=== PATIENT | female | born 1970 | race Caucasian/White ===

== ENCOUNTER → 2018-03-17 | Outpatient (CLI) | payer SELFPAY ==
[~2018-03-17] MED LIST: AMPDEX10CR PO; ASPI81CH PO; B12 SHOT; BENTYL20 MG PO; BENZ100A PO; CYCL10 PO; ESTR2 PO; FAMO20 PO; HYDACE5 PO; HYDR1TAB94 PO; IBUP600 PO; IBUP800 PO; LEVFLO500 PO; LEVSOD50 PO; LISI5 PO; LISINOPRIL 10MG PO; MELO7.5 PO; METF500 PO; METF500C PO; NAPR500 PO; OXYB5 PO; PENVK500 PO; PROM25 PO; Pepcid40 MG PO; QUET200 PO; ROPI1 PO; SUCR1 PO; SUMA25 PO; TRAM50 PO; TRAZ50 PO; Ultram50 MG PO; VIIBRYD; VIIBRYD40 MG PO; Verotin-Gr Cap1 EACH PO; [UNRECOGNIZED DRUG - REMARK]
[2018-03-17 19:59] LABS: Creatinine, Urine Random 52.8 mg/dL (27.00-270.00); Microalb/Creat Ratio UR, Rand 13.693 mg/g (0.000-30.000); Microalbumin, Random Urine 7.23 mg/L (0.000-20.000)
== END | disposition home or self-care (01) ==
LOC: LAB EV 15:30 → LAB SHORT 15:30
PROVIDERS: Physician Assistant Medical
DX: E11.9 Type 2 diabetes mellitus without complications (principal)
CPT/HCPCS: 82043; 82570

== ENCOUNTER → 2022-05-31 | Outpatient (CLI) | payer OTHER ==
[2022-05-31 10:48] LABS: Microalb/Creat Ratio UR, Rand 9.869 mg/g (0.000-30.000); Microalbumin, Random Urine 15.1 mg/L (0.000-20.000)
== END | disposition home or self-care (01) ==
LOC: LAB 08:31 → LAB SHORT 08:31
PROVIDERS: Family Medicine
DX: E11.42 Type 2 diabetes mellitus with diabetic polyneuropathy (principal)
CPT/HCPCS: 82043; 82570